=== PATIENT | male | born 1945 | race Caucasian/White ===

== ENCOUNTER → 2019-11-25 | Outpatient (CLI) | payer MEDICARE ==
[2019-11-25 09:29] LABS: Appearance,Urine Clear (Clear); Bilirubin,Urine Negative (Negative); Blood,Urine Negative (Negative); Color,Urine Yellow; Glucose,Urine (UA) Negative (Negative); Ketones,Urine Negative (Negative); Leukocyte Esterase,Urine Negative (Negative); Nitrite,Urine Negative (Negative); PH, Urine 5.5 (5.0-8.0); Protein,Urine Trace (Negative); Specific Gravity,Urine 1.025 (1.001-1.035)
[2019-11-25 10:02] LABS: Basophils # (A) 0.1 k/uL (0-0.2); Basophils % (A) 2 %; Eosinophils # (A) 0.3 k/uL (0-0.7); Eosinophils % (A) 3 %; HCT 46.1 % (39.0-53.0); HGB 15.1 gm/dL (13.0-17.5); Lymphocytes # (A) 3.1 k/uL (1.0-4.8); Lymphocytes % (A) 36 %; MCHC 32.8 g/dL (31.0-37.0); MCV 91.3 fL (80.0-100.0); Mean Platelet Volume 7.4; Monocytes # (A) 0.5 k/uL (0-1.0); Monocytes % (A) 5 %; Neutrophils # (A) 4.6 k/uL (1.3-7.7); Neutrophils % (A) 52 %; Platelet Count 279 k/uL (150-450); RBC 5.05 m/uL (4.30-5.90); RDW 12.7 % (11.5-15.5); WBC 8.8 k/uL (3.8-10.6)
[2019-11-25 10:11] LABS: Partial Thromboplastin Time 24.7 sec (22.0-30.0)
[2019-11-25 10:12] LABS: Calcium 9.7 mg/dL (8.4-10.2); Potassium 5.7 mmol/L (3.5-5.1)
--- NOTE | 2019-11-25 14:39 | XR ---
EXAMINATION TYPE: XR chest 2V DATE OF EXAM: 11/25/2019 COMPARISON: NONE HISTORY: Presurgical, spondylolisthesis TECHNIQUE: Frontal and lateral views of the chest are obtained. FINDINGS: There is no focal air space opacity, pleural effusion, or pneumothorax seen. The cardiac silhouette size is within normal limits. The osseous structures are intact. Anterior flowing osteop hytes in the thoracic spine with relative preservation of disc spaces may be indicative of diffuse id iopathic skeletal hyperostosis. There is a spinal curvature present. IMPRESSION: No acute cardiopulmonary process.
== END ==
LOC: LABPAT 08:50
PROVIDERS: ATTEND Orthopaedic Surgery Orthopaedic Surgery of the Spine
DX: Z01.818 Encounter for other preprocedural examination (principal); M43.10 Spondylolisthesis, site unspecified; Z79.01 Long term (current) use of anticoagulants
CPT/HCPCS: 36415; 71046; 80048; 81003; 85025; 85610; 85730; 87070

== ENCOUNTER 2019-12-01 06:09 | Inpatient (IN) | payer MEDICARE ==
[2019-11-27 12:30] VITALS: BMI 31.1
[~2019-12-01 06:09] MED LIST: DEXAMETHASONE SOD PHOSPHATE 10 MG/ML 1 ML VIAL IV ONE; LIDOCAINE 1% (10MG/ML) FOR IV START INTRADERMA PRN; ceFAZolin 1,000 MG in SODIUM CHLORIDE 0.9% IRRIGATIO 1,000 ML IRRIGATION ONE
[2019-12-01] MEDS ORDERED: ONDANSETRON 4 MG/2 ML VIAL ONE (06:54)
[2019-12-01] MEDS: LACTATED RINGERS 1,000 ML IV SCH (06:57)
[2019-12-01] MEDS: ONDANSETRON 4 MG/2 ML VIAL IVP ONE ×2 (07:00→12:39)
[2019-12-01] MEDS ORDERED: THROMBIN (BOVINE) 5,000 UNIT VIAL TOPICAL ONE (07:40)
[2019-12-01] MEDS ORDERED: GELATIN SPONGE,ABSORB (LARGE) 1 EACH SPONGE TOPICAL ONE (07:40)
[2019-12-01] MEDS ORDERED: HYDROmorphone (PF) 1 MG/ML ONE (07:49)
[2019-12-01] MEDS ORDERED: NEOSTIGMINE 1 MG/ML 10 ML VIAL ONE (07:49)
[2019-12-01] MEDS ORDERED: PHENYLEPHRINE-0.9% NACL SYG 1 MG/10 ML SYRINGE ONE (07:49)
[2019-12-01] MEDS ORDERED: PROPOFOL 10 MG/ML 20 ML VIAL IV ONE (07:49)
[2019-12-01] MEDS ORDERED: SUCCINYLCHOLINE CHLORIDE 100 MG/5 ML SYR IV ONE (07:49)
[2019-12-01] MEDS ORDERED: fentaNYL (PF) 50 MCG/ML 2 ML AMP ONE (07:49)
[2019-12-01] MEDS ORDERED: LIDOCAINE 1% INJ 10MG/ML (20 ML MDV) ONE (07:49)
[2019-12-01] MEDS ORDERED: GLYCOPYRROLATE 0.2 MG/ML 2 ML VIAL ONE (07:49)
[2019-12-01] MEDS ORDERED: ROCURONIUM BROMIDE 10 MG/ML 5 ML VIAL IV ONE (07:49)
[2019-12-01] MEDS ORDERED: ePHEDrine SULFATE/0.9% NACL/PF 50 MG/5 ML SYRINGE IV ONE (07:49)
[2019-12-01] MEDS ORDERED: MIDAZOLAM 2 MG/2 ML VIAL ONE (07:49)
[2019-12-01] MEDS ORDERED: BUPIVACAIN-EPI 0.25%-1:200,000 30 ML VIAL SQ ONE (08:36)
[2019-12-01] MEDS ORDERED: LACTATED RINGERS 1,000 ML IV ONE (09:36)
[2019-12-01] MEDS ORDERED: MAGNESIUM HYDROXIDE 2,400 MG/10 ML CUP PO PRN (11:25)
[2019-12-01] MEDS ORDERED: HYDROmorphone 1 MG/ML 1 ML SYRINGE IVP PRN ×2 (11:25→19:05)
[2019-12-01] MEDS ORDERED: BENZOCAINE/MENTHOL LOZENG 1 EACH LOZENGE MUCOUS MEM PRN (11:25)
[2019-12-01] MEDS ORDERED: HYDROcodone/APAP 5-325MG 1 EACH TAB PO PRN (11:25)
[2019-12-01] MEDS ORDERED: Suvorexant [Belsomra] PO PRN (11:27)
[2019-12-01] MEDS ORDERED: tiZANidine 4 MG TAB PO PRN (11:27)
--- NOTE | 2019-12-01 11:32 | XR ---
EXAMINATION TYPE: XR lumbar spine 2 or 3V, FL guidance operating room DATE OF EXAM: 12/01/2019 Comparison: None Clinical History: 74-year-old male Minimally INVASIVE LUMBAR FUSION Findings: 4 intraoperative images during posterior interbody lumbar fusion from L3 to L4 levels. FLUOROSCOPY Fluoroscopy time of 27 seconds was used during minimally invasive lumbar fusion. 4 image/s document/ s the procedure. Impression: Intraoperative fluoroscopy as above.
--- NOTE | 2019-12-01 11:36 | P.OP ---
Date of Procedure: 12/01/19 Preoperative Diagnosis: Spondylolisthesis L3 4, severe spinal stenosis L3 4, herniated nucleus pulposis L3 4, lower extremity of a, lower extremity weakness, low back pain, facet arthrosis, degenerative disc disease Postoperative Diagnosis: Same Anesthesia: GETA Pathology: none sent Condition: stable Disposition: PACU Description of Procedure: DESCRIPTION OF PROCEDURE(S): BRIEF OPERATIVE NOTE Preoperative Diagnosis: Spondylolisthesis L3 4, severe spinal stenosis L3 4, herniated nucleus pulposis L3 4, lower extremity of a, lower extremity weakness, low back pain, facet arthrosis, degenerative disc disease Postoperative Diagnosis: Same Procedure: Laminectomy and decompression L3 4 Computer navigation aided Minimally invasive Posterior lateral decompression and fusion L3 4 Minimally invasive Transforaminal lumbar interbody fusion for a 360 fusion L3 4 Discectomy for decompression L3 4 Placement of interbody graft L3 4 Use of computer navigation for fusion Local autogenous bone grafting Aspiration of bone marrow from the pedicle of L3 Use of bone graft extenders Surgeon: Dr. Simpson Candy Catcher: Trey SALMERON who is present throughout the entire the case persistence during positioning, dissection, exposure, visualization, and all crucial elements of the case as well as closure. Anesthesia: General anesthesia Estimated blood loss: Approximately 200 mL Complications: None apparent Components implanted: K2M minimally invasive [place] pedicle screw system with 4 screws measuring 6.5 mm in diameter to rods one [place] interbody cage with 10 mL of osteo amp bio4 bone graft substitute and 30 mL of the BX bone fibers to supplement the local autogenous bone graft and bone marrow aspirate Disposition: To recovery room in good stable condition. OPERATIVE INDICATIONS The patient has had severe issues at her right lower extremity in her lower back over the past several months. He had been having neurogenic claudication as well as radiculopathy and was having weakness of his lower extremities. He is having significant back pain as well. His found to have severe findings at his lumbar spine which correlated well with his low back and lower extremity symptoms. She is having severe radicular symptoms at her right lower extremity with weakness. he is unable to obtain any comfort. We did aggressive conservative treatment with medications therapy and interventional pain management however she was not having any relief. His imaging showed large disc herniation with extruded fragment L3 4 . She also showed evidence of a listhesis at L5-S1 with some dynamic instability. The patient has been through conservative treatment. We discussed various treatment options including surgery, and the patient wishes to proceed with surgery We discussed the risk, patient's alternatives and benefits of surgery including but not limited to, risk of bleeding risk of infection, risk of need for further surgery, risk of decreased, loss of motion, muscle function, malunion nonunion, hardware failure, nerve damage, paralysis, heart attack, blindness and . She understood issues with the current pandemic and the possibility of exposure. OPERATIVE SUMMARY After discussing all the risks, patient alternatives and benefits at length, the patient elected to proceed with surgical intervention, signed informed consent, and presented for their procedure. The patient was seen and examined in the preoperative holding area and the surgical site was marked. The patient was given antibiotics and brought to the operating room. The patient was sedated and intubated by anesthesia in standard fashion. The patient was positioned on to the operating room table in a prone position on the appropriate frame which was well-padded and well molded. We were careful to pad any bony prominences and pressure points. We were careful to maintain the patient's cervical spine and good neutral alignment and position throughout. The patient was prepped and draped in a normal standard fashion. An appropriate timeout and keystone protocol performed. We were able to proceed with the surgery. The local wound area was infiltrated with local anesthetic. I was able utilize C-arm guidance to establish appropriate position over the pedicles bilaterally at the appropriate levels at L3 4. With the appropriate levels confirmed was able to make small stab incisions over the appropriate pedicle sites bilaterally at L3 4. Utilizing C-arm in the computer navigation device I was able to establish bony landmarks at the right iliac crest for a bony reference point for the navigation device. I was able to establish a Jamshidi needle over the lateral aspect of the pedicle and advanced the trocar into the pedicle being careful not to breech superiorly inferiorly medially or laterally using computer navigation device. Position was confirmed regularly with AP and lateral images on C-arm and with the computer navigation device. I was able to establish the trocar into the pedicle appropriately into the posterior aspect of the vertebral body bilaterally at the appropriate levels of L3 4. This was done at each of the pedicle positions and each of the vertebrae. I was able place the guidewire into the trocar and into the vertebral body appropriately under C-arm guidance. Dissection was taken down over the wire to the appropriate starting position for the screw placed. The appropriate length screw was chosen, threaded over the guidewire and screwed appropriately into the pedicle and vertebral body under C-arm guidance in excellent alignment and position with good bony purchase. This is done at each of the screw sites at the appropriate levels at L3 4. With the screws intact I extended the incision to connect the screw hole sites on the most symptomatic side on the right. I dissected down to establish access over the pars and lamina to the base of the spinous process. I was able to expose the facet joint. The capsule the facet was taken down and showed some significant facet arthrosis at the joint. I was able to use a combination of curettes and Kerrison rongeurs and a high-speed drill to take down the facet joint and do a facetectomy. Partial laminectomy was also performed. I was able get excellent foraminal decompression and central decompression with undermining across midline to perform a laminectomy centrally and contralaterally. Note was made of severe central and bilateral foraminal stenosis. I had to do meticulous technique to do decompression across the midline and was able get excellent central and bilateral foraminal decompression As able get good central decompression. The ligamentum flavum was taken down to further decompress centrally and at bilateral neural foramen. I was able to expose the disc space and visualize the traversing nerve root. Note was made of disc herniation at L3 4 with extruded fragment that had traveled cephalad. I was able to remove the extruded fragment with good relief of the nerves. I was able to establish a annulotomy at the appropriate level protecting soft tissue and neural structures. Note was made of some disc desiccation at the disc. I performed a complete discectomy with accommodation of curettes and rasps and scrapers. I was able get good endplate preparation at the disc space. I sized for the appropriate size interbody spacer protecting the soft tissue and neural structures. The wound was copiously irrigated and suctioned dry. There is no evidence of any dural tear or leak. There was a small abrasion at the dura laterally approximate 1 mm in size. There is no active fluid or CSF coming from the abrasion itself. I was able to pack the disc space with local autogenous bone graft as well as a small amount of bone graft which was also placed into the interbody cage itself. Protecting the soft tissue structures and neural structures I was able place the interbody cage in good alignment and good position with good fit and fill at the interbody space. Position was confirmed with C-arm guidance. Good hemostasis maintained. There is no evidence of any dural tear or leak. Over the abrasion I did place a small amount of Tisseel to help protect and help heal the abrasive site. There is no evidence of leak. The wound was irrigated and suctioned dry. With the hardware intact, intraoperative C-arm imaging was again taken which showed good alignment and position of the hardware at the appropriate levels of L3 4. We were then able to measure, contour and place the rods and appropriate hardware bilaterally. I was able to place capcrews, tighten them down, and torque them with the torque screwdriver appropriately. With this intact I was able to place the local autogenous bone graft with additional bone graft enhancer as necessary into the posterior lateral gutters over the decorticated transverse processes and facet joints on the contralateral side. The remainder of the bone graft was placed over the facet joint on the contralateral side after taking down the facet joint capsule. With the bone graft intact, a stable construct, and good decompression at the appropriate levels, we were able to proceed with closure. Good hemostasis was maintained. There is no evidence of dural tear or leak. The fascia was closed for a watertight closure. he subcuticular tissue was closed with absorbable suture. The wound was cleaned and dried and dressed with the appropriate dressing. The drapes were broken down. The patient was gently rolled back onto their hospital bed being careful to maintain their cervical spine and good neutral alignment and position. They were woken up by anesthesia, extubated, and brought to the recovery room in good stable condition. The patient will be admitted to the hospital for appropriate postoperative care, medical management and monitoring. We will continue to follow them closely about the postoperative course.
[2019-12-01] MEDS: HYDROmorphone 0.5 MG/0.5 ML SYRINGE IVP PRN ×3 (12:15→14:29)
[2019-12-01] MEDS: SODIUM CHLORIDE 0.9% 1,000 ML IV SCH (14:29)
[2019-12-01] MEDS: HYDROcodone/APAP 10-325MG 1 EACH TAB PO PRN (16:34)
--- NOTE | 2019-12-01 18:05 | P.CONS ---
History of Present Illness - Reason for Consult Consult date: 12/01/19 - History of Present Illness Guero Mendoza, is a 74-year-old male patient of Dr. Pettit, who was admitted to [facility] emergency room by Dr. Stephens, and underwent laminectomy and decompression L3-4 with fusion of L3-4. Medical consultation was requested for management while hospitalized. Patient has a known history of hypertension, hyperlipidemia, atrial fibrillation, and history of vitamin D deficiency. Patient was seen and examined on the medical floor, he is alert and oriented 3 in no apparent distress, he is complaining of severe back pain postoperatively, otherwise he denies any complaints, there is no fever or chills no headache or dizziness no chest pain no shortness of breath no cough no nausea or vomiting no abdominal pain no diarrhea no blood in the stools no burning with urination no frequency or urgency and no hematuria. Past Medical History Past Medical History: Asthma, Hyperlipidemia, Hypertension, Musculoskeletal Disorder, Osteoarthritis (OA) Additional Past Medical History / Comment(s): iliopsoas back in past History of Any Multi-Drug Resistant Organisms: None Reported Past Surgical History: Orthopedic Surgery Additional Past Surgical History / Comment(s): cataracts removed, hand surg., thumb surg., colonoscopy Past Anesthesia/Blood Transfusion Reactions: No Reported Reaction Smoking Status: Never smoker - Past Family History Father Family Medical History: Cancer Mother Family Medical History: Deep Vein Thrombosis (DVT) Medications and Allergies Home Medications Medication Instructions Recorded Confirmed Type Aspirin 81 mg PO DAILY 11/27/19 11/27/19 History Atorvastatin [Lipitor] 20 mg PO HS 11/27/19 11/27/19 History Cholecalciferol [Vitamin D3 (25 5,000 unit PO DAILY 11/27/19 11/27/19 History Mcg = 1000 Iu)] HYDROcodone/APAP 10-325MG [[place] 1 tab PO Q6HR PRN 11/27/19 11/27/19 History 10-325] Ibuprofen [Motrin] 600 mg PO Q6HR PRN 11/27/19 11/27/19 History Lisinopril [Zestril] 20 mg PO DAILY 11/27/19 11/27/19 History Naproxen [Naprosyn] 500 mg PO Q12HR 11/27/19 11/27/19 History Suvorexant [Belsomra] 20 mg PO HS PRN 11/27/19 11/27/19 History amLODIPine [Norvasc] 10 mg PO DAILY 11/27/19 11/27/19 History tiZANidine [Zanaflex] 4 mg PO Q8HR PRN 11/27/19 11/27/19 History Allergies Allergy/AdvReac Type Severity Reaction Status Date / Time Iodinated Contrast Media Allergy Dyspnea Verified 12/01/19 06:48 Physical Exam Vitals: Vital Signs Temp Pulse Pulse Pulse Resp BP BP 12/01/19 13:55 91 105/54 12/01/19 13:40 92 111/67 12/01/19 13:25 100 101/61 12/01/19 13:10 92 18 105/57 12/01/19 12:20 99 18 136/71 12/01/19 12:05 103 H 18 132/70 12/01/19 11:50 80 18 141/69 12/01/19 11:35 109 H 18 150/92 12/01/19 11:20 97 F L 109 H 18 150/82 12/01/19 06:57 98.9 F 90 16 157/82 Pulse Ox 12/01/19 13:55 12/01/19 13:40 12/01/19 13:25 12/01/19 13:10 93 L 12/01/19 12:20 98 12/01/19 12:05 98 12/01/19 11:50 99 12/01/19 11:35 99 12/01/19 11:20 98 12/01/19 06:57 99 Intake and Output 12/01/19 12/01/19 12/01/19 06:59 14:59 22:59 Intake Total 100 2400 Output Total 450 Balance 100 1950 Intake: IV 100 1800 Intake, IV Titration 600 Amount Sodium Chloride 0.9% 1, 600 000 ml @ 75 mls/hr IV . [id number] [facility] Rx#:[id number] Output: Urine 250 Estimated Blood Loss 200 Other: Voiding Method Indwelling Catheter Weight 93.8 kg In general patient is alert and oriented 3 HEENT head normocephalic and atraumatic Neck is supple no JVD no goiter no lymphadenopathy Chest exam reveals a scattered rhonchi bilaterally no wheezing Cardiac exam reveals regular heart sounds no murmurs Abdomen is soft nontender no organomegaly Extremity exam reveals no edema no cyanosis or clubbing Assessment and Plan Plan: 1. Spondylolisthesis L3 4, severe spinal stenosis L3 4, status post laminectomy and decompression L3-4 was fusion of L3-4 2. Underlying history of hypertension well-controlled maintained on lisinopril and Norvasc will continue 3. Underlying history of hyperlipidemia maintained on simvastatin continue 4. History of atrial fibrillation heart rate is well-controlled, will monitor on telemetry during this admission For DVT prophylaxis SCD stockings, for GI prophylaxis add Protonix Will follow during this admission for medical management
[2019-12-01] MEDS ORDERED: MORPHINE SULFATE 4 MG/ML SYRINGE IVP PRN (18:54)
[2019-12-01] MEDS ORDERED: KETOROLAC 30 MG/ML 1 ML VIAL IVP STA (19:04)
[2019-12-01] MEDS: HYDROmorphone 1 MG/ML 1 ML SYRINGE IVP PRN ×2 (19:29→23:59)
[2019-12-01] MEDS: ONDANSETRON 4 MG/2 ML VIAL IVP PRN (19:46)
[2019-12-01] MEDS: ATORVASTATIN 20 MG TAB PO SCH (19:46)
[2019-12-02] MEDS: SODIUM CHLORIDE 0.9% 1,000 ML IV SCH ×2 (01:33→18:10)
[2019-12-02] MEDS: HYDROmorphone 1 MG/ML 1 ML SYRINGE IVP PRN ×3 (04:17→15:09)
[2019-12-02] MEDS: LACTATED RINGERS 1,000 ML IV SCH (05:39)
[2019-12-02 07:04] LABS: Basophils % (A) 0 %; Eosinophils # (A) 0.1 k/uL (0-0.7); Eosinophils % (A) 1 %; HCT 36.6 % (39.0-53.0); HGB 12.7 gm/dL (13.0-17.5); Lymphocytes # (A) 1.4 k/uL (1.0-4.8); Lymphocytes % (A) 10 %; MCH 32.1 pg (25.0-35.0); MCHC 34.6 g/dL (31.0-37.0); MCV 92.6 fL (80.0-100.0); Mean Platelet Volume 7.4; Monocytes # (A) 0.8 k/uL (0-1.0); Monocytes % (A) 6 %; Neutrophils # (A) 11.8 k/uL (1.3-7.7); Neutrophils % (A) 82 %; Platelet Count 195 k/uL (150-450); RBC 3.96 m/uL (4.30-5.90); WBC 14.3 k/uL (3.8-10.6)
[2019-12-02 07:12] LABS: Albumin 3.5 g/dL (3.5-5.0); Calcium 8.3 mg/dL (8.4-10.2); Potassium 4.6 mmol/L (3.5-5.1); Total Bilirubin 1.5 mg/dL (0.2-1.3); Total Protein 5.5 g/dL (6.3-8.2)
[2019-12-02] MEDS: CHOLECALCIFEROL 1,000 UNIT TAB PO SCH ×2 (07:51→07:52)
[2019-12-02] MEDS: HYDROcodone/APAP 5-325MG 1 EACH TAB PO PRN ×3 (07:52→18:10)
[2019-12-02] MEDS: ASPIRIN 81 MG PO SCH (07:52)
[2019-12-02] MEDS: lisinopriL 20 MG TAB PO SCH (07:52)
[2019-12-02] MEDS: SENNOSIDES-DOCUSATE SODIUM 1 EACH TAB PO SCH (07:52)
--- NOTE | 2019-12-02 08:56 | P.PN ---
Progress Note - Text Progress Note Date: 12/02/19 Orthopedic Spine: History of present illness: Patient is a pleasant 74-year-old male who is seen and examined at the bedside following posterior lateral decompression and fusion performed yesterday. Patient states he is been having some difficulty with pain control postoperatively. He is experiencing spasm towards his right buttock. He has difficulty with sitting upright and rolling over in bed. They're having some difficulty with the functionality of his bed and he's having new and brought to the room. His Sosa cath remains intact. He was able to eat yesterday. He did have some nausea and vomited afterwards due to narcotic pain medication. After receiving Zofran he was able to eat without vomiting. Currently does not complain of nausea, vomiting, fever, or chills. Patient states he appears he prescribed a muscle relaxer which did help. Current muscle relaxers not provided significant control his symptoms. He states IV Dilaudid does help control his symptoms for approximately 3 hours. Patient did receive 1 dose of Toradol last night which did help control his pain. Patient is being seen exam by medicine for medical management postoperatively. Physical Exam Lumbar Fusion: Status post surgical day number 1 Patient is awake, alert, and oriented 3 Vital signs stable Good chest excursion with deep inspiration and expiration Patient has difficulty with rolling over in bed Dorsiflexion, plantarflexion, and extensor hallucis longus positive sustained bilaterally No signs or symptoms of DVT; no calf pain; pneumatic cuffs not currently intact bilateral lower extremities Dressings over the surgical sites remain intact Sosa catheter intact Neurovascularly intact bilaterally lower extremities Assessment: Status post L3-4 minimally invasive posterior lateral decompression and fusion with transforaminal lumbar interbody fusion Low back pain Right lower extremity radiculopathy Right lower extremity spasm L3-4 spondylolisthesis L3-4 severe spinal canal stenosis and herniated nucleus pulposus Lumbar degenerative disc disease Lumbar facet arthrosis Plan: 1. Ambulate as tolerated; work with Physical Therapy to increase mobilization 2. Continue pain control with IV and oral medications; patient is also experiencing spasms in the right buttock. We will plan to discontinue Zanaflex and started Valium 5 mg 1 tab every 8 hours for muscle spasm 3. Dressing to remain intact; patient may shower with Optifoam dressings intact 4. We'll plan to discontinue his Sosa catheter once he is able to increase his mobilization 5. Medical management can continue to manage patient for patient's other medical diagnoses 6. We will continue to follow the patient closely 7. Patient can follow-up with Trey Rosales PA-C or Dr. Gurvinder Simpson at [facility] in 2-3 weeks following discharge
[2019-12-02] MEDS ORDERED: amLODIPine 10 MG TAB PO SCH (09:00)
[2019-12-02] MEDS: diazePAM 5 MG TAB PO PRN ×2 (09:30→18:10)
[2019-12-02 10:21] LABS: Magnesium 1.8 mg/dL (1.6-2.3)
--- NOTE | 2019-12-02 12:09 | P.CRDCN ---
History of Present Illness History of present illness: HISTORY OF PRESENTING ILLNESS This is a pleasant 74-year-old male past medical history significant for hypertension and dyslipidemia. He follows in the office with Dr. Marshall. We have been asked to see in consultation for arrhythmia in the operating room. He presented for an elective laminectomy with Dr. Simpson yesterday. Anesthesia noted that his rhythm was irregular from getting an EKG. EKG revealed atrial fibrillation with controlled ventricular rates. He has no prior documented history of A. fib in the past. He does have frequent PACs and PVCs noted in the past however no arrhythmia documented. He denies feeling chest pain, shortness of breath, dizziness or palpitations. He continues to be in atrial fibrillation this morning. Laboratory data reviewed, WBC 14.3, hemoglobin 12.7, platelets 137, potassium 4.6, creatinine 0.97, magnesium 1.8 and TSH 0.610. Currently maintained on aspirin 81 mg daily, atorvastatin 20 mg at bedtime, amlodipine 10 mg daily and lisinopril 20 mg daily. He underwent a nuclear stress test July 2018 that was negative for reversibility. Echocardiogram obtained last year revealed preserved LV systolic function with no major valvular abnormalities. REVIEW OF SYSTEMS At the time of my exam: CONSTITUTIONAL: Denies fever or chills. CARDIOVASCULAR: Denies chest pain, shortness of breath, orthopnea, PND or palpitations. RESPIRATORY: Denies cough. GASTROINTESTINAL: Denies abdominal pain, diarrhea, constipation, nausea or vomi ting. MUSCULOSKELETAL: Denies myalgias. NEUROLOGIC: Denies numbness, tingling or weakness. ENDOCRINE: Denies fatigue, weight change, polydipsia or polyurina. GENITOURINARY: Denies burning, hematuria or urgency with micturation. HEMATOLOGIC: Denies history of anemia or bleeding. PHYSICAL EXAMINATION Blood pressure 120/64 heart rate 100 afebrile and maintaining oxygen saturation on room air. CONSTITUTIONAL: No apparent distress. HEENT: Head is normocephalic. Pupils are equal, round. Sclerae anicteric. Mucous membranes of the mouth are moist. No JVD. No carotid bruit. CHEST EXAMINATION: Lungs are clear to auscultation. No chest wall tenderness is noted on palpation or with deep breathing. HEART EXAMINATION: Irregular rate and rhythm. S1, S2 heard. No murmurs, gallops or rub. ABDOMEN: Soft, nontender. Positive bowel sounds. EXTREMITIES: 2+ peripheral pulses, no lower extremity edema and no calf tenderness. NEUROLOGIC EXAMINATION: Patient is awake, alert and oriented x3. ASSESSMENT New onset paroxysmal atrial fibrillation Postoperative day #1 laminectomy Hypertension Dyslipidemia PLAN Lengthy discussion had with the patient describing pathophysiology of atrial fibrillation and the need for long-term anticoagulation and rate control. Also discussed possible cardioversion in the future. CHADS-VASC score is 2, recommend prison anticoagulation in the form of Eliquis 5 mg twice a day. We have discussed this with Dr. Simpson's physician case assistant and he states we can initiate this today. We will have the case managers to check his monthly cost. Initiate Lopressor 25 mg twice a day. Discontinue amlodipine. Repeat 2-D echocardiogram and Doppler study to assess cardiac structure and function. Thank you kindly for this consultation. Nurse Practitioner note has been reviewed, I agree with a documented findings and plan of care. Patient was seen and examined. Past Medical History Past Medical History: Asthma, Hyperlipidemia, Hypertension, Musculoskeletal Disorder, Osteoarthritis (OA) Additional Past Medical History / Comment(s): iliopsoas back in past History of Any Multi-Drug Resistant Organisms: None Reported Past Surgical History: Orthopedic Surgery Additional Past Surgical History / Comment(s): cataracts removed, hand surg., thumb surg., colonoscopy Past Anesthesia/Blood Transfusion Reactions: No Reported Reaction Smoking Status: Never smoker - Past Family History Father Family Medical History: Cancer Mother Family Medical History: Deep Vein Thrombosis (DVT) Medications and Allergies Home Medications Medication Instructions Recorded Confirmed Type Aspirin 81 mg PO DAILY 11/27/19 11/27/19 History Atorvastatin [Lipitor] 20 mg PO HS 11/27/19 11/27/19 History Cholecalciferol [Vitamin D3 (25 5,000 unit PO DAILY 11/27/19 11/27/19 History Mcg = 1000 Iu)] HYDROcodone/APAP 10-325MG [[place] 1 tab PO Q6HR PRN 11/27/19 11/27/19 History 10-325] Ibuprofen [Motrin] 600 mg PO Q6HR PRN 11/27/19 11/27/19 History Lisinopril [Zestril] 20 mg PO DAILY 11/27/19 11/27/19 History Naproxen [Naprosyn] 500 mg PO Q12HR 11/27/19 11/27/19 History Suvorexant [Belsomra] 20 mg PO HS PRN 11/27/19 11/27/19 History amLODIPine [Norvasc] 10 mg PO DAILY 11/27/19 11/27/19 History tiZANidine [Zanaflex] 4 mg PO Q8HR PRN 11/27/19 11/27/19 History Allergies Allergy/AdvReac Type Severity Reaction Status Date / Time Iodinated Contrast Media Allergy Dyspnea Verified 12/01/19 06:48 Physical Exam Vitals: Vital Signs Temp Pulse Pulse Resp BP Pulse Ox 12/02/19 04:10 99.1 F 100 16 120/64 95 12/01/19 23:00 110 H 16 12/01/19 20:15 98.9 F 110 H 16 108/54 92 L 12/01/19 13:55 91 105/54 12/01/19 13:40 92 111/67 12/01/19 13:25 100 101/61 12/01/19 13:10 92 18 105/57 93 L 12/01/19 12:20 99 18 136/71 98 12/01/19 12:05 103 H 18 132/70 98 12/01/19 11:50 80 18 141/69 99 12/01/19 11:35 109 H 18 150/92 99 12/01/19 11:20 97 F L 109 H 18 150/82 98 Intake and Output 12/01/19 12/02/19 12/02/19 22:59 06:59 14:59 Output Total 375 275 Balance -375 -275 Output: Urine 375 275 Other: Voiding Method Indwelling Catheter Indwelling Catheter Results 12/02/19 06:49 12/02/19 06:49 Cardiac Enzymes 12/02/19 Range/Units 06:49 AST 55 (17-59) U/L CBC 12/02/19 Range/Units 06:49 WBC 14.3 H (3.8-10.6) k/uL RBC 3.96 L (4.30-5.90) m/uL Hgb 12.7 L (13.0-17.5) gm/dL Hct 36.6 L (39.0-53.0) % Plt Count 195 (150-450) k/uL Comprehensive Metabolic Panel 12/02/19 Range/Units 06:49 Sodium 137 (137-145) mmol/L Potassium 4.6 (3.5-5.1) mmol/L Chloride 102 (98-107) mmol/L Carbon Dioxide 29 (22-30) mmol/L BUN 22 H (9-20) mg/dL Creatinine 0.97 (0.66-1.25) mg/dL Glucose 125 H (74-99) mg/dL Calcium 8.3 L (8.4-10.2) mg/dL AST 55 (17-59) U/L ALT 33 (4-49) U/L Alkaline Phosphatase 41 (38-126) U/L Total Protein 5.5 L (6.3-8.2) g/dL Albumin 3.5 (3.5-5.0) g/dL Current Medications Generic Name Dose Route Start Last Admin Trade Name Freq PRN Reason Stop Dose Admin Hydrocodone Bitart/Acetaminophen 1 each 12/01/19 11:25 [place] 5-325 PO Q4HR PRN Moderate Pain Hydrocodone Bitart/Acetaminophen 2 each 12/01/19 11:25 12/02/19 07:52 [place] 5-325 PO 2 each Q4HR PRN Administration Moderate Pain Hydrocodone Bitart/Acetaminophen 1 each 12/01/19 11:27 12/01/19 16:34 [place] 10 PO 1 each Q6HR PRN Administration Pain Aspirin 81 mg 12/02/19 09:00 12/02/19 07:52 Aspirin PO 81 mg DAILY MISSY Administration Atorvastatin Calcium 20 mg 12/01/19 21:00 12/01/19 19:46 Lipitor PO 20 mg HS MISSY Administration Benzocaine/Menthol 1 each 12/01/19 11:25 Cepacol Lozenge MUCOUS MEM Q4HR PRN Sore Throat Cholecalciferol 5,000 unit 12/02/19 09:00 12/02/19 07:52 Vitamin D3 (25 Mcg = 1000 Iu) PO 5,000 unit DAILY MISSY Administration Diazepam 5 mg 12/02/19 08:55 12/02/19 09:30 Valium PO 5 mg TID PRN Administration Spasms Hydromorphone HCl 0.5 mg 12/01/19 11:25 12/01/19 14:29 Dilaudid IVP 0.5 mg Q4HR PRN Administration Pain Hydromorphone HCl 1 mg 12/01/19 19:07 07/21/20 09:15 Dilaudid IVP 1 mg Q4HR PRN Administration Pain Hydromorphone HCl 2 mg 12/01/19 19:05 Dilaudid IVP Q4HR PRN Moderate to Severe Pain Lactated Ringer's 1,000 mls @ 20 mls/hr 12/01/19 05:45 12/02/19 05:39 Lactated Ringers IV Not Given .Q24H MISSY Sodium Chloride 1,000 mls @ 75 mls/hr 12/01/19 11:30 12/02/19 01:33 Saline 0.9% IV Not Given .[id number] MISSY Lidocaine HCl 0.1 ml 12/01/19 05:45 12/01/19 06:57 .Xylocaine 1% Inj (10mg/Ml) For Iv Start INTRADERMA 0.1 ml PER PROTOCOL PRN Administration IV Start Lisinopril 20 mg 12/02/19 09:00 12/02/19 07:52 Zestril PO 20 mg DAILY MISSY Administration Magnesium Hydroxide 2,400 mg 12/01/19 11:25 Milk Of Magnesia PO DAILY PRN Constipation Metoprolol Tartrate 25 mg 12/02/19 09:30 Lopressor PO BID MISSY Suvorexant [Belsomra 20 mg 12/01/19 11:27 ] PO HS PRN Insomnia Ondansetron HCl 4 mg 12/01/19 11:25 12/01/19 19:46 Zofran IVP 4 mg Q6HR PRN Administration Nausea Senna/Docusate Sodium 1 each 12/02/19 09:00 12/02/19 07:52 Senokot-S PO 1 each DAILY MISSY Administration Intake and Output 12/01/19 12/02/19 12/02/19 22:59 06:59 14:59 Output Total 375 275 Balance -375 -275 Output: Urine 375 275 Other: Voiding Method Indwelling Catheter Indwelling Catheter 12/02/19 06:49 12/02/19 06:49
[2019-12-02] MEDS: METOPROLOL TARTRATE 25 MG TAB PO SCH ×2 (12:27→21:05)
[2019-12-02] MEDS: APIXABAN 5 MG TAB PO SCH ×2 (12:27→21:05)
--- NOTE | 2019-12-02 17:32 | P.PN ---
Subjective Progress Note Date: 12/02/19 Guero Mendoza, is a 74-year-old male patient of Dr. Pettit, who was admitted to [facility] emergency room by Dr. Stephens, and underwent laminectomy and decompression L3-4 with fusion of L3-4. Medical consultation was requested for management while hospitalized. Patient has a known history of hypertension, hyperlipidemia, atrial fibrillation, and history of vitamin D deficiency. Patient was seen and examined on the medical floor, he is alert and oriented 3 in no apparent distress, he is complaining of severe back pain postoperatively, otherwise he denies any complaints, there is no fever or chills no headache or dizziness no chest pain no shortness of breath no cough no nausea or vomiting no abdominal pain no diarrhea no blood in the stools no burning with urination no frequency or urgency and no hematuria. On 12/02/2019 patient was seen and examined on the medical floor he is alert and oriented 3 in no apparent distress he is still complaining of back pain radiating to the right lower extremity otherwise he denies any complaints there is no fever or chills no headache or dizziness no chest pain no shortness of breath no cough no nausea or vomiting no abdominal pain no diarrhea no burning was urination no frequency or urgency no hematuria. Patient was seen by ca rdiology in regard to atrial fibrillation. Objective - Vital Signs Vital signs: Vital Signs Temp 98.7 F 12/02/19 12:21 Pulse 104 H 12/02/19 12:21 Resp 16 12/02/19 12:21 BP 106/63 12/02/19 12:21 Pulse Ox 95 12/02/19 12:21 Intake & Output 12/01/19 12/02/19 12/02/19 18:59 06:59 18:59 Intake Total 2400 400 Output Total 450 650 350 Balance 1950 -650 50 Intake: IV 1800 Intake, IV Titration 600 Amount Sodium Chloride 0.9% 1, 600 000 ml @ 75 mls/hr IV . [id number] [facility] Rx#:[id number] Oral 400 Output: Urine 250 650 350 Estimated Blood Loss 200 Other: Voiding Method Indwelling Catheter Indwelling Catheter Indwelling Catheter - Exam In general patient is alert and oriented 3 HEENT head normocephalic and atraumatic Neck is supple no JVD no goiter no lymphadenopathy Chest exam reveals a scattered rhonchi bilaterally no wheezing Cardiac exam reveals regular heart sounds no murmurs Abdomen is soft nontender no organomegaly Extremity exam reveals no edema no cyanosis or clubbing - Labs CBC & Chem 7: 12/02/19 06:49 12/02/19 06:49 Labs: Abnormal Lab Results - Last 24 Hours (Table) 12/02/19 12/02/19 Range/Units 06:49 06:49 WBC 14.3 H (3.8-10.6) k/uL RBC 3.96 L (4.30-5.90) m/uL Hgb 12.7 L (13.0-17.5) gm/dL Hct 36.6 L (39.0-53.0) % Neutrophils # 11.8 H (1.3-7.7) k/uL BUN 22 H (9-20) mg/dL Glucose 125 H (74-99) mg/dL Calcium 8.3 L (8.4-10.2) mg/dL Total Bilirubin 1.5 H (0.2-1.3) mg/dL Total Protein 5.5 L (6.3-8.2) g/dL Assessment and Plan Plan: 1. Spondylolisthesis L3 4, severe spinal stenosis L3 4, status post laminectomy and decompression L3-4 was fusion of L3-4 2. Underlying history of hypertension well-controlled maintained on lisinopril and Norvasc will continue 3. Underlying history of hyperlipidemia maintained on simvastatin continue 4. History of atrial fibrillation heart rate is well-controlled, will monitor on telemetry during this admission, patient was seen by cardiology amlodipine was discontinued metoprolol added to regimen and Eliquis added to regimen For DVT prophylaxis SCD stockings, for GI prophylaxis add Protonix Will follow during this admission for medical management
[2019-12-02] MEDS: ATORVASTATIN 20 MG TAB PO SCH (21:05)
[2019-12-02] MEDS: HYDROmorphone 0.5 MG/0.5 ML SYRINGE IVP PRN (21:38)
[2019-12-03] MEDS: HYDROcodone/APAP 5-325MG 1 EACH TAB PO PRN ×2 (00:50→05:42)
[2019-12-03] MEDS: LACTATED RINGERS 1,000 ML IV SCH (03:13)
[2019-12-03] MEDS: SODIUM CHLORIDE 0.9% 1,000 ML IV SCH (03:14)
[2019-12-03] MEDS: APIXABAN 5 MG TAB PO SCH ×2 (08:24→20:58)
[2019-12-03] MEDS: SENNOSIDES-DOCUSATE SODIUM 1 EACH TAB PO SCH (08:24)
[2019-12-03] MEDS: ASPIRIN 81 MG PO SCH (08:24)
[2019-12-03] MEDS: CHOLECALCIFEROL 1,000 UNIT TAB PO SCH (08:24)
[2019-12-03] MEDS: METOPROLOL TARTRATE 25 MG TAB PO SCH ×2 (08:24→20:57)
[2019-12-03] MEDS: lisinopriL 20 MG TAB PO SCH (08:24)
[2019-12-03] MEDS: HYDROcodone/APAP 10-325MG 1 EACH TAB PO PRN ×3 (08:33→20:58)
--- NOTE | 2019-12-03 10:00 | ECHOF ---
Referral Reason:new onset afib, rates controlled MEASUREMENTS -------- HEIGHT: 175.3 cm WEIGHT: 93.4 kg BP: 120/64 RVIDd: 3.5 cm (< 3.3) IVSd: 1.3 cm (0.6 - 1.1) LVIDd: 3.9 cm (3.9 - 5.3) LVPWd: 1.5 cm (0.6 - 1.1) IVSs: 1.4 cm LVIDs: 2.7 cm LVPWs: 1.6 cm LAESV Index (A-L): 34.51 ml/m Ao Diam: 3.3 cm (2.0 - 3.7) AV Cusp: 2.4 cm (1.5 - 2.6) MV EXCURSION: 21.800 mm (> 18.000) MV EF SLOPE: 81 mm/s (70 - 150) EPSS: 0.3 cm RAP: 5.00 mmHg RVSP: 28.29 mmHg FINDINGS -------- Atrial fibrillation. This was a technically difficult study with suboptimal apical views. The left ventricular size is normal. There is moderate concentric left ventricular hypertrophy. O verall left ventricular systolic function is normal with, an EF between 55 - 60 %. Left ventricular fillimg pressure cannot be estimated due to Atrial fibrillation. The right ventricle is mildly enlarged. LA is moderately dilated 34-39 ml/m2 The right atrium is mildly enlarged. xx ml of Lumason was utilized for enhancement of images. Interatrial and interventricular septum intact. The aortic valve is trileaflet and appears structurally normal. There is no evidence of aortic regu rgitation. There is no evidence of aortic stenosis. Ovip-is-lvvjjywv mitral regurgitation is present. Mild tricuspid regurgitation present. There is no evidence of pulmonary hypertension. The right v entricular systolic pressure, as measured by Doppler, is 28.29mmHg. There is no pulmonic regurgitation present. The aortic root size is normal. Normal inferior vena cava with normal inspiratory collapse consistent with estimated right atrial pre ssure of 5 mmHg. There is no pericardial effusion. CONCLUSIONS -------- 1. Atrial fibrillation. 2. The left ventricular size is normal. 3. There is moderate concentric left ventricular hypertrophy. 4. Overall left ventricular systolic function is normal with, an EF between 55 - 60 %. 5. Left ventricular fillimg pressure cannot be estimated due to Atrial fibrillation. 6. The right ventricle is mildly enlarged. 7. LA is moderately dilated 34-39 ml/m2 8. The right atrium is mildly enlarged. 9. Jzyu-ec-hfgngqib mitral regurgitation is present. 10. Mild tricuspid regurgitation present. CUT OFF MACHINE UNLOADER: Edith Calderon RDCS
--- NOTE | 2019-12-03 11:50 | P.PN ---
Subjective HISTORY OF PRESENTING ILLNESS This is a pleasant 74-year-old male past medical history significant for hypertension and dyslipidemia. He follows in the office with Dr. Marshall. He continues to be in atrial fibrillation with mostly controlled rates. Blood pressure 110/67 heart rate 85 afebrile and maintaining oxygen saturation on room air. He has no chest pain, shortness of breath, dizziness or palpitations. Echocardiogram reveals preserved LV systolic function with ejection fraction 55- 60%, moderately dilated left atrium and mild to moderate mitral regurgitation. PHYSICAL EXAMINATION Blood pressure 120/64 heart rate 100 afebrile and maintaining oxygen saturation on room air. CONSTITUTIONAL: No apparent distress. HEENT: Head is normocephalic. Pupils are equal, round. Sclerae anicteric. Mucous membranes of the mouth are moist. No JVD. No carotid bruit. CHEST EXAMINATION: Lungs are clear to auscultation. No chest wall tenderness is noted on palpation or with deep breathing. HEART EXAMINATION: Irregular rate and rhythm. S1, S2 heard. No murmurs, gallops or rub. ABDOMEN: Soft, nontender. Positive bowel sounds. EXTREMITIES: 2+ peripheral pulses, no lower extremity edema and no calf tenderness. NEUROLOGIC EXAMINATION: Patient is awake, alert and oriented x3. ASSESSMENT New onset paroxysmal atrial fibrillation Postoperative day #2 laminectomy Hypertension Dyslipidemia PLAN Continue current medical regimen. Follow up with Dr. Marshall upon discharge. We will continue to follow along as needed. Nurse Practitioner note has been reviewed, I agree with a documented findings and plan of care. Patient was seen and examined. Objective - Vital Signs Vital signs: Vital Signs Temp 98.4 F 12/03/19 03:55 Pulse 85 12/03/19 03:55 Resp 16 12/03/19 03:55 BP 110/67 12/03/19 03:55 Pulse Ox 92 L 12/03/19 03:55 Intake & Output 12/02/19 12/03/19 12/03/19 18:59 06:59 18:59 Intake Total 400 1800 Output Total 700 200 Balance -300 1600 Intake: Intake, IV Titration 900 Amount Sodium Chloride 0.9% 1, 900 000 ml @ 75 mls/hr IV . [id number] MISSY Rx#:[id number] Oral 400 900 Output: Urine 700 200 Other: Voiding Method Indwelling Catheter # Voids 1 - Labs CBC & Chem 7: 12/02/19 06:49 12/02/19 06:49
[2019-12-03] MEDS: ONDANSETRON 4 MG/2 ML VIAL IVP PRN (13:09)
--- NOTE | 2019-12-03 13:25 | P.DS ---
Providers Date of admission: 12/01/19 06:09 Attending physician: Erica Simpson Consults: 12/01/19 11:25 Consult Physician Routine Consulting Provider: Demetrius Harper Consult Reason/Comments: Medical management Do you want consulting provider notified?: Yes 12/01/19 11:48 Consult Physician Urgent Consulting Provider: Colin Marshall Consult Reason/Comments: new onset atrial fib Do you want consulting provider notified?: Yes Primary care physician: Georgina Pettit Hospital Course: The patient presented on the day of admission as per their operative note. He had severe spinal stenosis with listhesis lower extremity radiculopathy and underwent minimally invasive decompression and fusion as per his operative note. He been through extensive conservative treatment prior to surgery and when that fails he presented for this surgery at on the day of his admission. During the course of surgery he had been found to have issues with atrial fibrillation. He was a symptomatically postoperatively with this but was evaluated with the appropriate services and cardiology. Physical Exam His blood pressure is stable. Hemodynamically stable The incision site is clean dry and intact. There is no erythema no drainage. There is no purulence no evidence of infection. There is no active drainage. Abdomen soft and nontender. Chest has good excursion with deep inspiration and expiration. The patient has active and passive range of motion intact at the upper and lower extremities. There is no acute change in neurologic status. He has sustained dorsal flexion plantar flexion and EHL intact. Hospital Course Postoperative day #2 status post minimally invasive decompression and fusion for spinal stenosis with spondylolisthesis and degenerative disc disease and radiculopathy New onset atrial fibrillation The patient has been making good progress postoperatively in terms of his lumbar spine. He initially had some significant pain in his low back and lower extremity was some spasm but this seems to be resolving well with time and appropriate pain medications. They have completed the prophylactic antibiotics without any signs or symptoms of infection. The patient has been able to advance their diet, and is tolerating diet adequately. The pain was initially controlled with IV medications and is now controlled appropriately with oral medications. The patient has been able to increase their mobilization. He has been able to get in and out of bed well. He is passing gas freely and has been able have a bowel movement today. The patient had new onset atrial fibrillation at the time of surgery. This been followed and managed closely with medicine and cardiology. He has been started on Eliquis appropriately. He has remained asymptomatic and denies any chest pain or shortness breath. He denies any nausea or vomiting. He is planning to follow closely with cardiology as well as with his primary care physician The patient has progressed appropriately. For his back and for his atrial fibrillation. Cardiology has cleared him for discharge to follow up as outpatient. I think they are in good stable condition for discharge today. They will be sent home with appropriate prescriptions. I answered their questions to the best of my ability in a language that they can understand and they are agreeable with the plan. They will follow up as directed. Patient Condition at Discharge: Good Plan - Discharge Summary Discharge Rx Participant: No New Discharge Prescriptions: New Apixaban [Eliquis] 5 mg PO BID #180 tab HYDROcodone/APAP 10-325MG [[place] 10-325] 1 tab PO Q4HR PRN 7 Days #42 tab PRN Reason: Pain No Action tiZANidine [Zanaflex] 4 mg PO Q8HR PRN PRN Reason: Muscle Spasm Ibuprofen [Motrin] 600 mg PO Q6HR PRN PRN Reason: Pain HYDROcodone/APAP 10-325MG [[place] 10-325] 1 tab PO Q6HR PRN PRN Reason: Pain Aspirin 81 mg PO DAILY amLODIPine [Norvasc] 10 mg PO DAILY Suvorexant [Belsomra] 20 mg PO HS PRN PRN Reason: Insomnia Naproxen [Naprosyn] 500 mg PO Q12HR lisinopriL [Zestril] 20 mg PO DAILY Cholecalciferol [Vitamin D3 (25 Mcg = 1000 Iu)] 5,000 unit PO DAILY Atorvastatin [Lipitor] 20 mg PO HS Discharge Medication List Aspirin 81 mg PO DAILY 11/27/19 [History] Atorvastatin [Lipitor] 20 mg PO HS 11/27/19 [History] Cholecalciferol [Vitamin D3 (25 Mcg = 1000 Iu)] 5,000 unit PO DAILY 11/27/19 [History] HYDROcodone/APAP 10-325MG [[place] 10-325] 1 tab PO Q6HR PRN 11/27/19 [History] Ibuprofen [Motrin] 600 mg PO Q6HR PRN 11/27/19 [History] Naproxen [Naprosyn] 500 mg PO Q12HR 11/27/19 [History] Suvorexant [Belsomra] 20 mg PO HS PRN 11/27/19 [History] amLODIPine [Norvasc] 10 mg PO DAILY 11/27/19 [History] lisinopriL [Zestril] 20 mg PO DAILY 11/27/19 [History] tiZANidine [Zanaflex] 4 mg PO Q8HR PRN 11/27/19 [History] Apixaban [Eliquis] 5 mg PO BID #180 tab 12/02/19 [Rx] HYDROcodone/APAP 10-325MG [[place] 10-325] 1 tab PO Q4HR PRN 7 Days #42 tab 12/03/19 [Rx] Follow up Appointment(s)/Referral(s): Colin Marshall MD [STAFF PHYSICIAN] - 2 Weeks Trey Rosales PAC [PHYSICIAN BACK END ARCHITECT] - 2 Weeks (Patient may follow-up with Trey Rosales PA-C or Dr. Gurvinder Simpson at [facility] in 2-3 weeks following discharge. ) Patient Instructions/Handouts: Apixaban (By mouth) Activity/Diet/Wound Care/Special Instructions: 1. Patient may shower with Optifoam dressing intact. 2. Patient may remove Optifoam dressing in 3 days and shower without a dressing at that time. 3. Patient should refrain from driving until at least after their first follow- up appointment in the office. 4. Patient should avoid excessive bending, twisting, and lifting; no lifting greater than 10 pounds 5. Take medications as prescribed 6. Do not soak in tub Pt has eliquis in the pharmacy.
--- NOTE | 2019-12-03 13:48 | P.PN ---
Subjective Progress Note Date: 12/03/19 Guero Mendoza, is a 74-year-old male patient of Dr. Pettit, who was admitted to [facility] emergency room by Dr. Stephens, and underwent laminectomy and decompression L3-4 with fusion of L3-4. Medical consultation was requested for management while hospitalized. Patient has a known history of hypertension, hyperlipidemia, atrial fibrillation, and history of vitamin D deficiency. Patient was seen and examined on the medical floor, he is alert and oriented 3 in no apparent distress, he is complaining of severe back pain postoperatively, otherwise he denies any complaints, there is no fever or chills no headache or dizziness no chest pain no shortness of breath no cough no nausea or vomiting no abdominal pain no diarrhea no blood in the stools no burning with urination no frequency or urgency and no hematuria. On 12/02/2019 patient was seen and examined on the medical floor he is alert and oriented 3 in no apparent distress he is still complaining of back pain radiating to the right lower extremity otherwise he denies any complaints there is no fever or chills no headache or dizziness no chest pain no shortness of breath no cough no nausea or vomiting no abdominal pain no diarrhea no burning was urination no frequency or urgency no hematuria. Patient was seen by ca rdiology in regard to atrial fibrillation. On 12/03/2019 patient was seen and examined on the medical floor, he is alert and oriented 3 in no apparent distress he is complaining of nausea and had 1 episode of vomiting there is no fever or chills no headache or dizziness no chest pain no shortness of breath no cough no abdominal pain no diarrhea no burning with urination no frequency or urgency no hematuria, pain in the lower back and right lower extremity is better controlled than yesterday. Objective - Vital Signs Vital signs: Vital Signs Temp 98.4 F 12/03/19 03:55 Pulse 85 12/03/19 03:55 Resp 16 12/03/19 03:55 BP 110/67 12/03/19 03:55 Pulse Ox 92 L 12/03/19 03:55 Intake & Output 12/02/19 12/03/19 12/03/19 18:59 06:59 18:59 Intake Total 400 1800 Output Total 700 200 Balance -300 1600 Intake: Intake, IV Titration 900 Amount Sodium Chloride 0.9% 1, 900 000 ml @ 75 mls/hr IV . [id number] [facility] Rx#:[id number] Oral 400 900 Output: Urine 700 200 Other: Voiding Method Indwelling Catheter # Voids 1 - Exam In general patient is alert and oriented 3 HEENT head normocephalic and atraumatic Neck is supple no JVD no goiter no lymphadenopathy Chest exam reveals a scattered rhonchi bilaterally no wheezing Cardiac exam reveals regular heart sounds no murmurs Abdomen is soft nontender no organomegaly Extremity exam reveals no edema no cyanosis or clubbing - Labs CBC & Chem 7: 12/02/19 06:49 12/02/19 06:49 Assessment and Plan Plan: 1. Spondylolisthesis L3 4, severe spinal stenosis L3 4, status post laminectomy and decompression L3-4 was fusion of L3-4 2. Underlying history of hypertension well-controlled maintained on lisinopril and Norvasc will continue 3. Underlying history of hyperlipidemia maintained on simvastatin continue 4. History of atrial fibrillation heart rate is well-controlled, will monitor on telemetry during this admission, patient was seen by cardiology amlodipine was discontinued metoprolol added to regimen and Eliquis added to regimen For DVT prophylaxis SCD stockings, for GI prophylaxis add Protonix Will follow during this admission for medical management
[2019-12-03 13:49] VITALS: RESP 18
[2019-12-03] MEDS: diazePAM 5 MG TAB PO PRN (17:11)
[2019-12-03] MEDS: ATORVASTATIN 20 MG TAB PO SCH (20:58)
[2019-12-04] MEDS: HYDROcodone/APAP 10-325MG 1 EACH TAB PO PRN ×2 (02:49→09:01)
[2019-12-04 05:39] VITALS: BP 120/82; PULSE 91; TEMP 98.6
[2019-12-04] MEDS: LACTATED RINGERS 1,000 ML IV SCH (07:07)
[2019-12-04] MEDS: METOPROLOL TARTRATE 25 MG TAB PO SCH (07:27)
[2019-12-04] MEDS: ASPIRIN 81 MG PO SCH (07:27)
[2019-12-04] MEDS: CHOLECALCIFEROL 1,000 UNIT TAB PO SCH (07:27)
[2019-12-04] MEDS: lisinopriL 20 MG TAB PO SCH (07:29)
[2019-12-04] MEDS: APIXABAN 5 MG TAB PO SCH (07:29)
[2019-12-04] MEDS: SENNOSIDES-DOCUSATE SODIUM 1 EACH TAB PO SCH (07:29)
[2019-12-04 07:55] LABS: Basophils # (A) 0.1 k/uL (0-0.2); Basophils % (A) 0 %; Eosinophils # (A) 0.2 k/uL (0-0.7); Eosinophils % (A) 1 %; HCT 36.4 % (39.0-53.0); HGB 12.3 gm/dL (13.0-17.5); Lymphocytes # (A) 2.6 k/uL (1.0-4.8); Lymphocytes % (A) 18 %; MCH 31.4 pg (25.0-35.0); MCHC 33.8 g/dL (31.0-37.0); MCV 92.9 fL (80.0-100.0); Mean Platelet Volume 7.9; Monocytes # (A) 0.8 k/uL (0-1.0); Monocytes % (A) 6 %; Neutrophils % (A) 73 %; Platelet Count 222 k/uL (150-450); RBC 3.92 m/uL (4.30-5.90); RDW 12.6 % (11.5-15.5); WBC 14.9 k/uL (3.8-10.6)
[2019-12-04 08:28] LABS: ALT 26 U/L (4-49); AST 38 U/L (17-59); African American GFR (CKD) >90 (>60 ml/min/1.73 sqM); Albumin 3.7 g/dL (3.5-5.0); Alkaline Phosphatase 51 U/L (38-126); Anion Gap 8 mmol/L; Blood Urea Nitrogen 16 mg/dL (9-20); Calcium 8.4 mg/dL (8.4-10.2); Carbon Dioxide 28 mmol/L (22-30); Chloride 98 mmol/L (98-107); Glucose 109 mg/dL (74-99); Non-African American GFR(CKD) >90 (>60 ml/min/1.73 sqM); Potassium 3.9 mmol/L (3.5-5.1); Sodium 134 mmol/L (137-145); Total Bilirubin 1.6 mg/dL (0.2-1.3); Total Protein 5.9 g/dL (6.3-8.2)
--- NOTE | 2019-12-04 08:48 | P.DS ---
Providers Date of admission: 12/01/19 06:09 Attending physician: Erica Simpson Consults: 12/01/19 11:25 Consult Physician Routine Consulting Provider: Demetrius Harper Consult Reason/Comments: Medical management Do you want consulting provider notified?: Yes 12/01/19 11:48 Consult Physician Urgent Consulting Provider: Colin Marshall Consult Reason/Comments: new onset atrial fib Do you want consulting provider notified?: Yes Primary care physician: Georgina Pettit Hospital Course: Postoperative day #3 status post minimally invasive decompression and fusion L3 4 L4 5 for his spondylolisthesis with severe spinal stenosis low back pain and lower extremity radiculopathy Findings of new onset atrial fibrillation which has been asymptomatic The patient presented on the day of admission as per their operative note. He had severe spinal stenosis with listhesis lower extremity radiculopathy and underwent minimally invasive decompression and fusion as per his operative note. He been through extensive conservative treatment prior to surgery and when that fails he presented for this surgery at on the day of his admission. During the course of surgery he had been found to have issues with atrial fibrillation. He was a symptomatically postoperatively with this but was evaluated with the appropriate services and cardiology. Physical Exam His blood pressure is stable. Hemodynamically stable The incision site is clean dry and intact. There is no erythema no drainage. There is no purulence no evidence of infection. There is no active drainage. His back is clear Abdomen soft and nontender. Chest has good excursion with deep inspiration and expiration. The patient has active and passive range of motion intact at the upper and lower extremities. There is no acute change in neurologic status. He has sustained dorsal flexion plantar flexion and EHL intact. He has sustained dorsal flexion plantar flexion and EHL intact Hospital Course Postoperative day #3 status post minimally invasive decompression and fusion for spinal stenosis with spondylolisthesis and degenerative disc disease and radiculopathy New onset atrial fibrillation The patient has been making good progress postoperatively in terms of his lumbar spine. He is up walking around in his room with assistance of his walker. He has had a bowel movement. He initially had some significant pain in his low matt k and lower extremity was some spasm but this seems to be resolving well with time and appropriate pain medications. They have completed the prophylactic antibiotics without any signs or symptoms of infection. The patient has been able to advance their diet, and is tolerating diet adequately. The pain was initially controlled with IV medications and is now controlled appropriately with oral medications. The patient has been able to increase their mobilization. He has been able to get in and out of bed well. He is passing gas freely. His white count was slightly high likely due to his steroid use. He has not been febrile. The patient had new onset atrial fibrillation at the time of surgery. This been followed and managed closely with medicine and cardiology. He has been started on Eliquis appropriately. He has remained asymptomatic and denies any chest pain or shortness breath. He denies any nausea or vomiting. He is planning to follow closely with cardiology as well as with his primary care physician The patient has progressed appropriately. For his back and for his atrial fibrillation. Cardiology has cleared him for discharge to follow up as outpatient. I think they are in good stable condition for discharge today. They will be sent home with appropriate prescriptions. I answered their questions to the best of my ability in a language that they can understand and they are agreeable with the plan. They will follow up as directed in approximately 2 weeks or sooner if he is having problems. Patient Condition at Discharge: Good Plan - Discharge Summary Discharge Rx Participant: No New Discharge Prescriptions: New Apixaban [Eliquis] 5 mg PO BID #180 tab HYDROcodone/APAP 10-325MG [[place] 10-325] 1 tab PO Q4HR PRN 7 Days #42 tab PRN Reason: Pain No Action tiZANidine [Zanaflex] 4 mg PO Q8HR PRN PRN Reason: Muscle Spasm Ibuprofen [Motrin] 600 mg PO Q6HR PRN PRN Reason: Pain HYDROcodone/APAP 10-325MG [[place] 10-325] 1 tab PO Q6HR PRN PRN Reason: Pain Aspirin 81 mg PO DAILY amLODIPine [Norvasc] 10 mg PO DAILY Suvorexant [Belsomra] 20 mg PO HS PRN PRN Reason: Insomnia Naproxen [Naprosyn] 500 mg PO Q12HR lisinopriL [Zestril] 20 mg PO DAILY Cholecalciferol [Vitamin D3 (25 Mcg = 1000 Iu)] 5,000 unit PO DAILY Atorvastatin [Lipitor] 20 mg PO HS Discharge Medication List Aspirin 81 mg PO DAILY 11/27/19 [History] Atorvastatin [Lipitor] 20 mg PO HS 11/27/19 [History] Cholecalciferol [Vitamin D3 (25 Mcg = 1000 Iu)] 5,000 unit PO DAILY 11/27/19 [History] HYDROcodone/APAP 10-325MG [[place] 10-325] 1 tab PO Q6HR PRN 11/27/19 [History] Ibuprofen [Motrin] 600 mg PO Q6HR PRN 11/27/19 [History] Naproxen [Naprosyn] 500 mg PO Q12HR 11/27/19 [History] Suvorexant [Belsomra] 20 mg PO HS PRN 11/27/19 [History] amLODIPine [Norvasc] 10 mg PO DAILY 11/27/19 [History] lisinopriL [Zestril] 20 mg PO DAILY 11/27/19 [History] tiZANidine [Zanaflex] 4 mg PO Q8HR PRN 11/27/19 [History] Apixaban [Eliquis] 5 mg PO BID #180 tab 12/02/19 [Rx] HYDROcodone/APAP 10-325MG [[place] 10-325] 1 tab PO Q4HR PRN 7 Days #42 tab 12/03/19 [Rx] Follow up Appointment(s)/Referral(s): Colin Marshall MD [STAFF PHYSICIAN] - 2 Weeks Trye Rosales PAC [PHYSICIAN [employer]] - 2 Weeks (Patient may follow-up with Trey Rosales PA-C or Dr. Gurvinder Simpson at [facility] in 2-3 weeks following discharge. ) Patient Instructions/Handouts: Hydrocodone/Acetaminophen (By mouth), Apixaban (By mouth) Activity/Diet/Wound Care/Special Instructions: 1. Patient may shower with Optifoam dressing intact. 2. Patient may remove Optifoam dressing in 3 days and shower without a dressing at that time. 3. Patient should refrain from driving until at least after their first follow- up appointment in the office. 4. Patient should avoid excessive bending, twisting, and lifting; no lifting greater than 10 pounds 5. Take medications as prescribed 6. Do not soak in tub Pt has eliquis in the pharmacy. Discharge Disposition: HOME SELF-CARE
--- NOTE | 2019-12-04 11:16 | P.PN ---
Subjective Progress Note Date: 12/04/19 Guero Mendoza, is a 74-year-old male patient of Dr. Pettit, who was admitted to [facility] emergency room by Dr. Stephens, and underwent laminectomy and decompression L3-4 with fusion of L3-4. Medical consultation was requested for management while hospitalized. Patient has a known history of hypertension, hyperlipidemia, atrial fibrillation, and history of vitamin D deficiency. Patient was seen and examined on the medical floor, he is alert and oriented 3 in no apparent distress, he is complaining of severe back pain postoperatively, otherwise he denies any complaints, there is no fever or chills no headache or dizziness no chest pain no shortness of breath no cough no nausea or vomiting no abdominal pain no diarrhea no blood in the stools no burning with urination no frequency or urgency and no hematuria. On 12/02/2019 patient was seen and examined on the medical floor he is alert and oriented 3 in no apparent distress he is still complaining of back pain radiating to the right lower extremity otherwise he denies any complaints there is no fever or chills no headache or dizziness no chest pain no shortness of breath no cough no nausea or vomiting no abdominal pain no diarrhea no burning was urination no frequency or urgency no hematuria. Patient was seen by ca rdiology in regard to atrial fibrillation. On 12/03/2019 patient was seen and examined on the medical floor, he is alert and oriented 3 in no apparent distress he is complaining of nausea and had 1 episode of vomiting there is no fever or chills no headache or dizziness no chest pain no shortness of breath no cough no abdominal pain no diarrhea no burning with urination no frequency or urgency no hematuria, pain in the lower back and right lower extremity is better controlled than yesterday. On 12/04/2019 patient was seen and examined on the medical floor, he is feeling better his pain is better controlled he is scheduled for discharge to home today, there is no fever or chills no headache or dizziness no chest pain no shortness of breath no cough no nausea or vomiting no abdominal pain no diarrhea no burning with urination no frequency or urgency and no hematuria, patient will follow-up with Dr. yanez within one week. Objective - Vital Signs Vital signs: Vital Signs Temp 98.6 F 12/04/19 05:00 Pulse 91 07/23/20 05:00 Resp 18 12/04/19 05:00 BP 120/82 12/04/19 05:00 Pulse Ox 95 12/04/19 05:00 Intake & Output 12/03/19 12/04/19 12/04/19 18:59 06:59 18:59 Intake Total 150 890 Balance 150 890 Intake: Intake, IV Titration 150 Amount Sodium Chloride 0.9% 1, 150 000 ml @ 75 mls/hr IV . [id number] [facility] Rx#:[id number] Oral 890 Other: Voiding Method Urinal # Voids 4 2 - Exam In general patient is alert and oriented 3 HEENT head normocephalic and atraumatic Neck is supple no JVD no goiter no lymphadenopathy Chest exam reveals a scattered rhonchi bilaterally no wheezing Cardiac exam reveals regular heart sounds no murmurs Abdomen is soft nontender no organomegaly Extremity exam reveals no edema no cyanosis or clubbing - Labs CBC & Chem 7: 12/04/19 07:09 12/04/19 07:09 Labs: Abnormal Lab Results - Last 24 Hours (Table) 12/04/19 12/04/19 Range/Units 07:09 07:09 WBC 14.9 H (3.8-10.6) k/uL RBC 3.92 L (4.30-5.90) m/uL Hgb 12.3 L (13.0-17.5) gm/dL Hct 36.4 L (39.0-53.0) % Neutrophils # 11.0 H (1.3-7.7) k/uL Sodium 134 L (137-145) mmol/L Glucose 109 H (74-99) mg/dL Total Bilirubin 1.6 H (0.2-1.3) mg/dL Total Protein 5.9 L (6.3-8.2) g/dL Assessment and Plan Plan: 1. Spondylolisthesis L3 4, severe spinal stenosis L3 4, status post laminectomy and decompression L3-4 was fusion of L3-4 2. Underlying history of hypertension well-controlled maintained on lisinopril and Norvasc will continue 3. Underlying history of hyperlipidemia maintained on simvastatin continue 4. History of atrial fibrillation heart rate is well-controlled, will monitor on telemetry during this admission, patient was seen by cardiology amlodipine was discontinued metoprolol added to regimen and Eliquis added to regimen For DVT prophylaxis SCD stockings, for GI prophylaxis add Protonix Will follow during this admission for medical management
== END 2019-12-04 11:11 | disposition home or self-care (01) | DRG 455 ==
LOC: 2ORMAIN 06:09 → 5NMEDONC 11:15
PROVIDERS: ADMIT Orthopaedic Surgery Orthopaedic Surgery of the Spine; ATTEND Orthopaedic Surgery Orthopaedic Surgery of the Spine
PROC: 0SG00AJ Fusion of Lumbar Vertebral Joint with Interbody Fusion Device, Posterior Approach, Anterior Column, Open Approach (ICD-10-PCS; 2019-12-01)
PROC: 01NB0ZZ Release Lumbar Nerve, Open Approach (ICD-10-PCS; 2019-12-01)
PROC: 0ST20ZZ Resection of Lumbar Vertebral Disc, Open Approach (ICD-10-PCS; 2019-12-01)
PROC: 0SG0071 Fusion of Lumbar Vertebral Joint with Autologous Tissue Substitute, Posterior Approach, Posterior Column, Open Approach (ICD-10-PCS; principal; 2019-12-01 07:30)
DX: M48.062 Spinal stenosis, lumbar region with neurogenic claudication (principal); I48.0 Paroxysmal atrial fibrillation; M51.16 Intervertebral disc disorders with radiculopathy, lumbar region; M43.16 Spondylolisthesis, lumbar region; I10 Essential (primary) hypertension; E78.5 Hyperlipidemia, unspecified; E55.9 Vitamin D deficiency, unspecified; J45.909 Unspecified asthma, uncomplicated; M19.90 Unspecified osteoarthritis, unspecified site; R11.2 Nausea with vomiting, unspecified; I34.0 Nonrheumatic mitral (valve) insufficiency; T40.605A Adverse effect of unspecified narcotics, initial encounter; Z79.82 Long term (current) use of aspirin; Z79.1 Long term (current) use of non-steroidal anti-inflammatories (NSAID); Z98.890 Other specified postprocedural states; Z98.42 Cataract extraction status, left eye; Z98.41 Cataract extraction status, right eye; Z79.899 Other long term (current) drug therapy; Z82.3 Family history of stroke; Z80.9 Family history of malignant neoplasm, unspecified
CPT/HCPCS: 72100; 80053; 83735; 84443; 85025; 86850; 86900; 86901; 93005; 93306

== ENCOUNTER → 2020-01-22 | Outpatient (CLI) | payer MEDICARE ==
[2020-01-22 09:27] LABS: HCT 45.6 % (39.0-53.0); HGB 14.6 gm/dL (13.0-17.5); MCH 29.1 pg (25.0-35.0); MCV 91.1 fL (80.0-100.0); Mean Platelet Volume 7.2; Platelet Count 313 k/uL (150-450); RBC 5.01 m/uL (4.30-5.90); RDW 12.7 % (11.5-15.5)
== END | disposition home or self-care (01) ==
LOC: LABPAT 08:50
PROVIDERS: ATTEND Internal Medicine Clinical Cardiac Electrophysiology
DX: Z01.818 Encounter for other preprocedural examination (principal); I48.19 Other persistent atrial fibrillation
CPT/HCPCS: 82565; 83735; 84520; 85027

== ENCOUNTER 2020-01-26 10:27 | Day surgery (SDC) | payer MEDICARE ==
[2020-01-21 16:06] VITALS: BMI 29.9
[~2020-01-26 10:27] MED LIST changes: -DEXAMETHASONE SOD PHOSPHATE 10 MG/ML 1 ML VIAL IV ONE; +LACTATED RINGERS 1,000 ML IV SCH; -LIDOCAINE 1% (10MG/ML) FOR IV START INTRADERMA PRN; +SODIUM CHLORIDE 0.9% 1,000 ML IV SCH; -ceFAZolin 1,000 MG in SODIUM CHLORIDE 0.9% IRRIGATIO 1,000 ML IRRIGATION ONE
[2020-01-26 11:32] VITALS: RESP 16; TEMP 98.2
[2020-01-26] MEDS ORDERED: PROPOFOL 10 MG/ML 20 ML VIAL IV ONE (11:55)
[2020-01-26] MEDS ORDERED: IV FLUID CONTINUATION 400 ML IV ONE (11:55)
[2020-01-26] MEDS ORDERED: FLECAINIDE 50 MG TAB PO STA (12:12)
--- NOTE | 2020-01-26 12:38 | P.PCN ---
Preoperative Diagnosis: Diagnosis Persistent atrial fibrillation, symptomatic with tiredness and fatigue Mostly intrinsically rate controlled Likely conduction system disease with bradycardia underlying Procedure Electrical cardioversion Details Patient was asked to hold metoprolol. Despite that his rates were controlled at rest He underwent electrical cardioversion with a 200 and biphasic shock Type II conversion occurred to sinus rhythm Following that he had sinus beats with frequent PACs and short bursts of atrial tachycardia, slow atrial tachycardia Plan Start flecainide 50 mg twice daily Follow-up this week to watch for bradycardia Follow-up Holter monitor Consideration for A. fib ablation especially if his energy level improves in sinus rhythm
[2020-01-26 13:28] VITALS: BP 133/72; PULSE 72
== END 2020-01-26 13:27 | disposition home or self-care (01) ==
LOC: CATHEP 10:27
PROVIDERS: ATTEND Internal Medicine Clinical Cardiac Electrophysiology
DX: I48.19 Other persistent atrial fibrillation (principal); I10 Essential (primary) hypertension; I49.1 Atrial premature depolarization; I49.3 Ventricular premature depolarization; Z91.048 Other nonmedicinal substance allergy status; Z79.01 Long term (current) use of anticoagulants; Z79.899 Other long term (current) drug therapy
CPT/HCPCS: 92960; J2704

== ENCOUNTER → 2020-04-14 | Outpatient (CLI) | payer MEDICARE ==
[2020-04-14 09:57] LABS: HCT 45.8 % (39.0-53.0); MCH 28.8 pg (25.0-35.0); MCHC 32.8 g/dL (31.0-37.0); MCV 87.9 fL (80.0-100.0); Mean Platelet Volume 7.4; Platelet Count 243 k/uL (150-450); RBC 5.21 m/uL (4.30-5.90); RDW 14.2 % (11.5-15.5); WBC 9.3 k/uL (3.8-10.6)
[2020-04-14 15:09] LABS: African American GFR (CKD) 86.2 (60.0-200.0); Albumin 4.4 g/dL (3.80-4.90); Albumin/Globulin Ratio 2.32 (1.60-3.17); Anion Gap 5.6 mmol/L (4.00-12.00); Calcium 9.7 mg/dL (8.7-10.3); Carbon Dioxide 29.4 mmol/L (21.6-31.8); Globulin 1.9 g/dL (1.6-3.3); Non-African American GFR(CKD) 74.3 (60.0-200.0); Potassium 4.7 mmol/L (3.5-5.5); Total Bilirubin 0.7 mg/dL (0.2-1.2); Total Protein 6.3 g/dL (6.2-8.2)
[2020-04-14 15:31] LABS: Hemoglobin A1C 5.6 % (4.0-6.0)
[2020-04-14 21:11] LABS: INR 1.02 (0.90-1.11); Partial Thromboplastin Time 32.2 sec (23.5-31.0)
== END | disposition home or self-care (01) ==
LOC: LABWHC1 08:55
PROVIDERS: ATTEND Orthopaedic Surgery
DX: Z01.818 Encounter for other preprocedural examination (principal); M12.9 Arthropathy, unspecified; D64.9 Anemia, unspecified
CPT/HCPCS: 36415; 80053; 83036; 85027; 85610; 85730; 86850; 86900; 86901; 87070

== ENCOUNTER → 2020-06-02 | Outpatient (CLI) | payer MEDICARE ==
[2020-06-02 10:39] LABS: HCT 43.5 % (39.0-53.0); HGB 14.1 gm/dL (13.0-17.5); MCH 29.6 pg (25.0-35.0); MCHC 32.3 g/dL (31.0-37.0); MCV 91.6 fL (80.0-100.0); Mean Platelet Volume 7.2; Platelet Count 280 k/uL (150-450); RBC 4.75 m/uL (4.30-5.90); WBC 9.5 k/uL (3.8-10.6)
[2020-06-02 10:48] LABS: African American GFR (CKD) >90 (>60 ml/min/1.73 sqM); Anion Gap 5 mmol/L; Blood Urea Nitrogen 13 mg/dL (9-20); Carbon Dioxide 31 mmol/L (22-30); Chloride 101 mmol/L (98-107); Non-African American GFR(CKD) 83 (>60 ml/min/1.73 sqM); Potassium 4.7 mmol/L (3.5-5.1); Sodium 137 mmol/L (137-145)
== END | disposition home or self-care (01) ==
LOC: LABPAT 09:30
PROVIDERS: ATTEND Internal Medicine Clinical Cardiac Electrophysiology
DX: Z01.818 Encounter for other preprocedural examination (principal); I47.2 Ventricular tachycardia
CPT/HCPCS: 36415; 80051; 82565; 83735; 84520; 85027

== ENCOUNTER 2020-06-08 10:29 | Day surgery (SDC) | payer MEDICARE, OTHER ==
[2020-06-02 15:47] VITALS: BMI 29.5
[~2020-06-08 10:29] MED LIST changes: +DEXAMETHASONE SOD PHOSPHATE 4 MG/ML 1 ML VIAL IV ONE; +HYDROmorphone 0.5 MG/0.5 ML SYRINGE IVP PRN; -LACTATED RINGERS 1,000 ML IV SCH; +LIDOCAINE 1% (10MG/ML) FOR IV START INTRADERMA PRN; +MIDAZOLAM 2 MG/2 ML VIAL IV PRN; +ONDANSETRON 4 MG/2 ML VIAL IVP ONE; -SODIUM CHLORIDE 0.9% 1,000 ML IV SCH; +diphenhydrAMINE 50 MG/ML 1 ML VIAL IVP PRN; +methylPREDNISolone SOD SUCCI 125 MG/2 ML VIAL IV PRN
[2020-06-08] MEDS ORDERED: SODIUM CHLORIDE 0.9% 1,000 ML IV ONE (10:57)
[2020-06-08] MEDS ORDERED: ISOPROTERENOL 250 MCG/1.25 ML SYR IV ONE (11:53)
[2020-06-08] MEDS ORDERED: PROTAMINE SULFATE 10 MG/ML 5 ML VIAL IV ONE (11:53)
[2020-06-08] MEDS ORDERED: diphenhydrAMINE 50 MG/ML 1 ML VIAL ONE (11:53)
[2020-06-08] MEDS ORDERED: PHENYLEPHRINE 10 MG/ML VIAL ONE (11:53)
[2020-06-08] MEDS ORDERED: DEXAMETHASONE SOD PHOSPHATE 10 MG/ML 1 ML VIAL ONE (11:53)
[2020-06-08] MEDS ORDERED: LIDOCAINE 1% INJ 10MG/ML (20 ML MDV) ONE ×2 (11:53→12:22)
[2020-06-08] MEDS ORDERED: HEPARIN SODIUM,PORCINE 10,000 UNIT/ML 1 ML VIAL ONE (11:53)
[2020-06-08] MEDS ORDERED: MIDAZOLAM 2 MG/2 ML VIAL ONE (11:53)
[2020-06-08] MEDS ORDERED: SUCCINYLCHOLINE CHLORIDE 100 MG/5 ML SYR IV ONE (11:53)
[2020-06-08] MEDS ORDERED: fentaNYL (PF) 50 MCG/ML 2 ML AMP ONE (11:53)
[2020-06-08] MEDS ORDERED: ePHEDrine SULFATE/0.9% NACL/PF 50 MG/5 ML SYRINGE IV ONE (11:53)
[2020-06-08] MEDS ORDERED: PROPOFOL 10 MG/ML 20 ML VIAL IV ONE (11:53)
[2020-06-08] MEDS ORDERED: HEPARIN SOD,PORK IN 0.45% NACL 25,000 UNIT in 0.45% NACL 1 250ML.BAG IV ONE (12:50)
[2020-06-08] MEDS ORDERED: LIDOCAINE 1% INJ 10MG/ML (20 ML MDV) SQ ONE (12:51)
[2020-06-08] MEDS ORDERED: IOPAMIDOL-370 100ML BTL INJ ONE (15:37)
[2020-06-08] MEDS ORDERED: HEPARIN SODIUM (1,000 UNIT/ML) 1,000 UNIT in SODIUM CHLORIDE 0.9% 1,000 ML IRRIGATION ONE (15:38)
[2020-06-08] MEDS ORDERED: Suvorexant [Belsomra] PO PRN (16:12)
[2020-06-08] MEDS ORDERED: SODIUM CHLORIDE 0.9% 500 ML 500 ML IV ONE (16:14)
[2020-06-08] MEDS ORDERED: ACETAMINOPHEN IV (For NPO) 1,000 MG in EMPTY BAG 1 BAG IVPB ONE (16:15)
[2020-06-08] MEDS ORDERED: ACETAMINOPHEN TAB 325 MG TAB PO PRN (16:15)
--- NOTE | 2020-06-08 16:30 | P.EPPROC ---
- EP Procedure Note Electrophysiology Procedure Note: Procedure Diagnostic EP study/A. fib ablation Diagnosis Atrial fibrillation, symptomatic, refractory to therapy Persistent Bradycardia with higher doses of beta blockers and flecainide Result No left atrial appendage mass seen on intracardiac echo Successful A. fib ablation/pulmonary vein isolation of all veins using cryo- ablation Complete entrance block in all 4 veins confirmed No evidence for phrenic nerve injury Linear ablation, posterior septum of the left atrium Linear ablation in the range between the left atrial appendage and the pulmonary veins Esophageal deflection YES Electrical cardioversion with a synchronized shock across the chest NO Procedure details Patient was brought to the EP lab in a fasting state. Written informed consent was obtained prior to the procedure. Procedure performed under general anesthesia After initial muscle relaxant use, muscle relaxants were not given thereafter in order to assess phrenic nerve during procedure. Patient prepped and draped as per protocol Full cryo-set up with standard preparation of the cryoablation tools done. Femoral Venous access obtained on the right and left groins Venous and arterial Sheaths placed. Diagnostic catheters for the high right atrium, phrenic nerve stimulation and pacing, His bundle, RV and coronary sinus placed Intracardiac echo catheter placed. Long sheath placed in the right atrium Left and right transseptal catheterization performed under intracardiac echo guidance. Intravenous heparin with aCT above 300 Later, catheter positioning and balloon positioning in the left atrium, under intracardiac echo guidance Diagnostic EP study with Drug infusion Coronary sinus pacing and recording Baseline measurements Sinus cycle length 994 ms, WV interval 150 ms, QRS 90 ms, QT 408 ms AH 88 ms, HV interval 52 ms Atrial pacing performed from the high right atrium and the coronary sinus Burst stimulation from the coronary sinus down to 200 ms. No atrial fibrillation Burst stimulation and double extrastimuli on Isuprel, no atrial fibrillation Transseptal catheterization performed RA pressure 8/3 LA pressure 13/8 Transseptal catheterization performed with standard sheath. The cryoablation sheath was then placed with an over the wire exchange without any acute complications. All 4 pulmonary veins were isolated in the following sequence: Left superior followed by left inferior followed by right superior followed by right inferior The cryo-ablation balloon was placed at the os of each vein 1.5 mL of IV dye was injected to confirm an occluded vein Goal during cryoablation was to achieve complete occlusion of the pulmonary vein, achieve -30 degrees C at 30 seconds and achieve -40 degrees C at 60 seconds and a time to effect of less than 60-90 seconds, . If not the balloon was repositioned to obtain this result After completion of Cryoblation with durations from 180-240 seconds, entrance block was confirmed with the Attain circular catheter in a roving fashion around the antrum of the pulmonary veins Phrenic nerve pacing was performed from the SVC, right innominate vein area and diaphragm voltage was monitored. Diaphragmatic contractions were also monitored manually for strength of contraction. Parameter goals for each cryo freeze Complete occlusion of the appropriate vein -30 degrees C by 30 seconds -40 degrees C by 60 seconds Minimum between minus 40-55 degrees C Thaw time greater than 10 seconds Balloon visualized by intracardiac echo The esophagus was intubated. Esophageal Temperature monitoring with a CIRCA catheter formed. Esophageal deflection for hypothermia of the esophagus below 30 degrees C Left superior pulmonary vein Complete isolation, entrance block Left inferior pulmonary vein Complete isolation, entrance block Right superior pulmonary vein, during phrenic nerve pacing Complete isolation, entrance block Right inferior pulmonary vein, during phrenic nerve pacing Complete isolation, entrance block At the end of the procedure the Achieve catheter was once again used to check for entrance block Phrenic nerve stimulation was performed to confirm diaphragmatic stimulation the end of the procedure Cine fluoroscopy was performed at the very end of the procedure to confirm movement of both diaphragms with inspiration and expiration 3-D L tramadol mapping of the left atrium Pulmonary veins are completely isolated Linear ablation in the ridge between the appendage and the left-sided veins in the anterior jackie in areas of fractionated electrograms Linear ablation along the septum of the left atrium. This line was then connected to the right superior and right inferior pulmonary veins At the end of the procedure the patient was extubated Heparin was reversed Venous sheaths were removed and hemostasis assured Procedures performed (PVI - CRYO Ablation) Diagnostic EP study CS pacing and recording Left and right transseptal catheterization 3D mapping Intracardiac echocardiography Pulmonary vein isolation with transseptal and comprehensive EPS, [id number] Linear ablation, left atrium, +[id number] Drug Infusion +[id number]
--- NOTE | 2020-06-08 16:33 | P.PRLE ---
RE: Guero Mendoza Dear Georgina Jack underwent successful A. fib ablation with complete isolation of all pulmonary veins as well as linear ablation in the septum of the left atrium Thereafter he was noninducible for any atrial fibrillation He will continue his current medications including ELIQUIS For now he will continue low-dose flecainide and low-dose metoprolol Thank you for entrusting me with the care of the patient Warm regards Sincerely Colin Marshall
[2020-06-08] MEDS: SODIUM CHLORIDE 0.9% 1,000 ML IV SCH (16:46)
[2020-06-08] MEDS: LACTATED RINGERS 1,000 ML IV SCH (16:46)
[2020-06-08] MEDS ORDERED: ATORVASTATIN 20 MG TAB PO SCH (21:00)
[2020-06-08] MEDS: METOPROLOL TARTRATE 12.5 MG TAB PO SCH (22:30)
[2020-06-08] MEDS: lisinopriL 20 MG TAB PO SCH (22:31)
[2020-06-08] MEDS: FLECAINIDE 50 MG TAB PO SCH (22:31)
[2020-06-08] MEDS: APIXABAN 5 MG TAB PO SCH (22:31)
[2020-06-09] MEDS: LACTATED RINGERS 1,000 ML IV SCH (02:21)
[2020-06-09] MEDS: SODIUM CHLORIDE 0.9% 1,000 ML IV SCH (02:21)
[2020-06-09] MEDS: FLECAINIDE 50 MG TAB PO SCH (08:17)
[2020-06-09] MEDS: APIXABAN 5 MG TAB PO SCH (08:17)
[2020-06-09] MEDS: lisinopriL 20 MG TAB PO SCH (08:17)
[2020-06-09] MEDS: METOPROLOL TARTRATE 12.5 MG TAB PO SCH (08:17)
--- NOTE | 2020-06-09 08:59 | DS ---
DISCHARGE SUMMARY Mr. Mendoza is a 74-year-old male patient with persistent symptomatic atrial fibrillation, who is failing flecainide. He is intolerant of higher doses of flecainide. Yesterday he underwent an atrial fibrillation ablation. This morning he is doing well. He has a very vague discomfort in the chest, very mild, but he looks very comfortable. No JVD. Heart sounds are normal. Normal S1, normal S2. There is no rub audible. Lungs are clear. He does have a little bit of a cough. No rhonchi, no crackles. Abdomen is soft, nontender. Extremities are warm. He has no swelling. He had minimal oozing from the right groin. There is no hematoma. Sutures have been removed. His vitals are stable. Blood pressure is 128 systolic, heart rate is in the 70s. His 12-lead EKG shows PACs atrial bigeminy and nonsustained atrial tachycardia and brief episodes of atrial fibrillation. Yesterday when he underwent an atrial fibrillation ablation, on initial intracardiac echo evaluation a prominent posterior pericardial stripe was noted and was particularly prominent in the posterior aspect of the left atrium with a very tiny pericardial space that was visible outside of the posterior wall of the left atrium. He does report that early last year he had a viral infection, but at that time he did not experience any chest discomfort. IMPRESSION: 1. Persistent atrial fibrillation. 2. Likely pericarditis last year. 3. Status post cryoablation of the pulmonary veins and linear ablation along the septum and anterior jackie in the ridge between the left atrial appendage and the left-sided veins. PLAN: 1. Ambulating in the hallways. 2. Colchicine 0.6 mg p.o. daily and I will give him prescription to take home. 3. Continue anticoagulation. 4. Continue all other cardiac medications. 5. We will see him again in about 1-2 weeks. I warned him that he may have some atrial fibrillation in the first one or two months, but for the first three months we will not make any changes in his medications unless necessary. MMODL / IJN: [id number] /
[2020-06-09] MEDS ORDERED: amLODIPine 5 MG TAB PO SCH (09:00)
[2020-06-09] MEDS ORDERED: COLCHICINE 0.6 MG EACH PO SCH (09:00)
[2020-06-09 14:14] VITALS: BP 130/77; PULSE 66; RESP 20; TEMP 97.6
== END 2020-06-09 15:41 | disposition home or self-care (01) ==
LOC: CATHEP 10:29 → 6NMEDSUR 15:42 → CATHEP 06-09 15:41
PROVIDERS: ATTEND Internal Medicine Clinical Cardiac Electrophysiology
DX: I48.19 Other persistent atrial fibrillation (principal); I10 Essential (primary) hypertension; I49.5 Sick sinus syndrome; I47.1 Supraventricular tachycardia; J45.909 Unspecified asthma, uncomplicated; Z79.01 Long term (current) use of anticoagulants; Z79.899 Other long term (current) drug therapy; Z96.659 Presence of unspecified artificial knee joint; Z98.890 Other specified postprocedural states; Z97.2 Presence of dental prosthetic device (complete) (partial); Z88.5 Allergy status to narcotic agent; Z91.041 Radiographic dye allergy status
CPT/HCPCS: 93623; 93662; 93613; 93656; 93657; C1769 ×4; C1894 ×2; C1730 ×2; C1759; C1893; C1733; C1766; J2250; J2720; J1200; J1100; J2370; J2930; J2001; J3010; J1644 ×2; J0330; J2704; Q9967